=== PATIENT | female | born 1990 | race Two or more races ===

== ENCOUNTER 2017-06-23 10:53 | Outpatient (CLI) | payer BC | END 2017-06-23 23:59 | disposition home or self-care (01) | LOC: LAB 10:53 | PROVIDERS: ATTEND Family Medicine | DX: Z11.3 Encounter for screening for infections with a predominantly sexual mode of transmission (principal); Z11.59 Encounter for screening for other viral diseases; Q68.8 Other specified congenital musculoskeletal deformities; R79.89 Other specified abnormal findings of blood chemistry; Z83.3 Family history of diabetes mellitus | CPT/HCPCS: 36415; 73650-TC; 86592; 86706; 86709-TC; 86803; 87491; 87591 ==